=== PATIENT | female | born 1955 | race American Indian/Alaskan Native ===

== ENCOUNTER 2019-01-06 14:57 | Outpatient (CLI) | payer MEDICARE ==
[2019-01-06 16:03] LABS: Hematocrit 37.6 % (30.3-42.9); Hemoglobin 12.8 gm/dl (10.1-14.3); Mean Corpuscular HGB Conc 34 % (30-34); Mean Corpuscular Volume 97 fl (79-97); Platelet Count 211 K/mm3 (140-440); Red Blood Count 3.88 M/mm3 (3.65-5.03); Red Cell Distribution Width 11.8 % (13.2-15.2)
[2019-01-06 16:04] LABS: Bilirubin,Urine NEG (Negative); Blood,Urine NEG (Negative); Color,Urine Yellow (Yellow); Protein,Urine <15 mg/dL mg/dL (Negative); Urobilinogen,Urine < 2.0 mg/dL (<2.0)
[2019-01-06 16:07] LABS: Alanine Aminotransferase 12 units/L (7-56); Albumin 4.2 g/dL (3.9-5); BUN/Creatinine Ratio 14; Blood Urea Nitrogen 7 mg/dL (7-17); Calcium 8.9 mg/dL (8.4-10.2); Hemolysis Index 1
== END 2019-01-06 14:58 | disposition home or self-care (01) ==
LOC: LAB 14:57
PROVIDERS: ATTEND Internal Medicine
DX: B18.2 Chronic viral hepatitis C (principal); D72.829 Elevated white blood cell count, unspecified; N39.0 Urinary tract infection, site not specified; I10 Essential (primary) hypertension
CPT/HCPCS: 36415; 80053; 81001; 85027

== ENCOUNTER 2019-01-20 08:07 | Emergency (ER) | payer MEDICARE ==
[2019-01-20 08:36] LABS: Hematocrit 36.3 % (30.3-42.9); Hemoglobin 12.4 gm/dl (10.1-14.3); Mean Corpuscular HGB Conc 34 % (30-34); Mean Corpuscular Volume 97 fl (79-97); Platelet Count 213 K/mm3 (140-440); Red Blood Count 3.73 M/mm3 (3.65-5.03)
[2019-01-20 08:46] LABS: BUN/Creatinine Ratio 14; Blood Urea Nitrogen 10 mg/dL (7-17); Calcium 8.9 mg/dL (8.4-10.2); Hemolysis Index 116
[2019-01-20] MEDS ORDERED: ZOFRAN IV ONE (08:47)
[2019-01-20] MEDS ORDERED: NACL 0.9% 1000 ML 1,000 ML IV ONE (08:47)
[2019-01-20] MEDS ORDERED: CARAFATE PO ONE (08:47)
[2019-01-20] MEDS ORDERED: PEPCID IV ONE (08:47)
--- NOTE | 2019-01-20 08:48 | Emergency Department Report ---
ED General Adult HPI - General Chief complaint: Abdominal Pain Stated complaint: ABD PAIN Time Seen by Provider: 01/20/19 08:26 Source: patient, RN notes reviewed Mode of arrival: Ambulatory Limitations: No Limitations - History of Present Illness Initial comments: Primary care Dr.: Dr. Tom Past medical history: Hypertension, diabetes, rheumatoid arthritis, currently on humira and plaquenil This is a pleasant 63-year-old female. This patient is not known to this provider previously. The patient states that she had a colonoscopy 6 months ago , "by the group across the street", and believes that it showed hemorrhoids. She presents to the ER today with 1 month of intermittent diffuse abdominal pain and cramping, nausea, no active vomiting, brown stool mixed with red blood. Symptoms present for a few weeks, do not radiate anywhere, and reportedly did not have exacerbating or early infectious. Positive dry cough. No documented fevers. Patient was taking NSAIDs up until 2 weeks ago. She states she is not taking any anticoagulants or NSAIDs at this time. -: Gradual Location: abdomen Consistency: intermittent Improves with: none Worsens with: none - Related Data Home Medications Medication Instructions Recorded Confirmed Last Taken Hydroxychloroquine [Plaquenil] 200 mg PO BID 10/06/13 01/20/19 01/19/19 Lisinopril [Zestril] 5 mg PO QDAY 10/06/13 01/20/19 01/19/19 5 Prednisone [Sherman] 5 mg PO QDAY 10/06/13 01/20/19 01/19/19 5 glipiZIDE [Glipizide Xl] 10 mg PO AMHY 10/06/13 01/20/19 01/19/19 10 Adalimumab [Humira] 20 mg SQ Q14D 01/20/19 01/20/19 01/03/19 20 Previous Rx's Medication Instructions Recorded Last Taken Type Acetaminophen [Non-Aspirin Extra 500 mg PO Q6HR PRN #30 tablet 01/20/19 Unknown Rx Strength] Dicyclomine [Bentyl] 10 mg PO QID PRN #20 capsule 01/20/19 Unknown Rx Hydrocortisone [Anusol-Hc 2.5% TOP 30 gm RC QHS #10 cream..g. 01/20/19 Unknown Rx CREAM] Ondansetron [Zofran Odt] 4 mg PO Q8HR PRN #20 tab.rapdis 01/20/19 Unknown Rx Allergies Allergy/AdvReac Type Severity Reaction Status Date / Time codeine Allergy Itching Verified 10/06/13 02:08 ED Review of Systems ROS: Stated complaint: ABD PAIN Other details as noted in HPI Constitutional: denies: fever Eyes: denies: eye discharge ENT: denies: epistaxis Respiratory: cough Cardiovascular: denies: chest pain, palpitations Gastrointestinal: abdominal pain, nausea, hematochezia Genitourinary: denies: dysuria Musculoskeletal: arthralgia (chronic) Skin: denies: lesions Neurological: denies: weakness Hematological/Lymphatic: denies: easy bleeding ED Past Medical Hx - Past Medical History Hx Hypertension: Yes Hx Diabetes: Yes Hx Arthritis: Yes (rheumatoid) - Social History Smoking Status: Current Every Day Smoker Substance Use Type: None - Medications Home Medications: Home Medications Medication Instructions Recorded Confirmed Last Taken Type Hydroxychloroquine [Plaquenil] 200 mg PO BID 10/06/13 01/20/19 01/19/19 History Lisinopril [Zestril] 5 mg PO QDAY 10/06/13 01/20/19 01/19/19 History 5 Prednisone [Sherman] 5 mg PO QDAY 10/06/13 01/20/19 01/19/19 History 5 glipiZIDE [Glipizide Xl] 10 mg PO AMHY 10/06/13 01/20/19 01/19/19 History 10 Acetaminophen [Non-Aspirin Extra 500 mg PO Q6HR PRN #30 tablet 01/20/19 Unknown Rx Strength] Adalimumab [Humira] 20 mg SQ Q14D 01/20/19 01/20/19 01/03/19 History 20 Dicyclomine [Bentyl] 10 mg PO QID PRN #20 capsule 01/20/19 Unknown Rx Hydrocortisone [Anusol-Hc 2.5% TOP 30 gm RC QHS #10 cream..g. 01/20/19 Unknown Rx CREAM] Ondansetron [Zofran Odt] 4 mg PO Q8HR PRN #20 tab.rapdis 01/20/19 Unknown Rx ED Physical Exam - General Limitations: No Limitations General appearance: alert, in no apparent distress - Head Head exam: Present: atraumatic, normocephalic - Eye Eye exam: Present: normal appearance, EOMI. Absent: nystagmus - ENT ENT exam: Present: normal exam, normal orophraynx, mucous membranes moist, normal external ear exam - Neck Neck exam: Present: normal inspection, full ROM. Absent: tenderness, meningismus - Respiratory Respiratory exam: Present: normal lung sounds bilaterally. Absent: respiratory distress - Cardiovascular Cardiovascular Exam: Present: regular rate, normal rhythm, normal heart sounds. Absent: bradycardia, tachycardia, irregular rhythm, systolic murmur, diastolic murmur, rubs, gallop - GI/Abdominal GI/Abdominal exam: Present: soft. Absent: distended, tenderness, guarding, rebound, rigid, pulsatile mass - Rectal Rectal exam: Present: normal inspection, normal rectal tone, heme (+) stool, hemorrhoids (external hemorrhoid. Brown stool, guaiac positive.), other (chaperoned by nurse Anisha Hu) - Extremities Exam Extremities exam: Present: normal inspection, full ROM, other (2+ pulses noted in the bilateral upper, lower extremities. There is no long bony tenderness. The pelvis is stable. Muscular compartments are soft.). Absent: tenderness, pedal edema, joint swelling, calf tenderness - Back Exam Back exam: Present: normal inspection, full ROM. Absent: tenderness, CVA tenderness (R), CVA tenderness (L), paraspinal tenderness, vertebral tenderness - Neurological Exam Neurological exam: Present: alert, other (there is no facial droop. The tongue is midline. The extraocular movements are intact bilaterally. 5/ 5 strength bilateral upper, lower extremities. Sensation intact to light touch bilateral upper, lower extremities bilaterally. Sensation is intact to light touch in the bilateral V1, V2, V3 distribution.). Absent: motor sensory deficit - Psychiatric Psychiatric exam: Present: normal affect, normal mood - Skin Skin exam: Present: warm, dry, intact, normal color. Absent: rash ED Course Vital Signs 01/20/19 01/20/19 08:12 10:16 Temperature 98.4 F Pulse Rate 94 H 80 Respiratory 16 18 Rate Blood Pressure 158/93 150/45 [Left] O2 Sat by Pulse 95 97 Oximetry - Reevaluation(s) Reevaluation #1: 01/20/19 09:25 Differential diagnosis, including but not limited to: Internal hemorrhoids, external hemorrhoids, diverticulosis, angiodysplasia, malignancy, colitis, diverticulitis Assessment and plan: 63-year-old female with 1 month abdominal cramping and intermittent bloody stool. The patient is afebrile with reassuring vital signs. Hemoglobin, hematocrit acceptable and within normal limits. There is no abdominal tenderness at this time. Vital signs are within normal limits. Patient has brown stool that is guaiac positive, an external hemorrhoid. We have contacted gastroenterology acid conditioning worker, attempting to obtain the colonoscopy report, and arrange close outpatient follow-up. Given duration of symptoms, physical exam findings, laboratory studies, and our local GI group's ability to accommodate close outpatient follow-up, the patient at this point time does not meet criteria for hospitalization, assuming CT scan of the abdomen and pelvis negative for significant disease. We will treat the patient's symptoms. We bartolome l reassess after data points have resulted. Reevaluation #2: 01/20/19 09:29 d/w GI PRODUCT SUPPORT REPRESENTATIVE Tata Sharif; as per the records, patient had a colonoscopy in 2008, as per the patient's verbal report, which only showed hemorrhoids. She was also seen for constipation and/or anal fissure in 2010 She is in agreement with close outpatient follow-up, assuming CT scan shows no acute findings. 01/20/19 09:42 Reevaluation #3: 01/20/19 11:02 Vital signs have remained stable. CT scan of the abdomen and pelvis negative for acute disease. No active vomiting. Patient will be started on anusol, as needed pain medication, and she can follow up with outpatient gastroenterology. ED Medical Decision Making - Lab Data Result diagrams: 01/20/19 08:22 01/20/19 08:22 Vital Signs 01/20/19 08:12 Temperature 98.4 F Pulse Rate 94 H Respiratory 16 Rate Blood Pressure 158/93 [Left] O2 Sat by Pulse 95 Oximetry Lab Results 01/20/19 01/20/19 01/20/19 Range/Units 08:22 08:22 08:22 WBC 11.0 (4.5-11.0) K/mm3 RBC 3.73 (3.65-5.03) M/mm3 Hgb 12.4 (10.1-14.3) gm/dl Hct 36.3 (30.3-42.9) % MCV 97 (79-97) fl MCH 33 H (28-32) pg MCHC 34 (30-34) % RDW 12.0 L (13.2-15.2) % Plt Count 213 (140-440) K/mm3 Eos % (Auto) [employer] Developer Sodium 137 (137-145) mmol/L Potassium 4.0 (3.6-5.0) mmol/L Chloride 102.2 (98-107) mmol/L Carbon Dioxide 22 (22-30) mmol/L Anion Gap 17 mmol/L BUN 10 (7-17) mg/dL Creatinine 0.7 (0.7-1.2) mg/dL Estimated GFR > 60 ml/min BUN/Creatinine Ratio 14 % Glucose 157 H (65-100) mg/dL Calcium 8.9 (8.4-10.2) mg/dL Magnesium (1.7-2.3) mg/dL Total Bilirubin (0.1-1.2) mg/dL Direct Bilirubin (0-0.2) mg/dL Indirect Bilirubin mg/dL AST (5-40) units/L ALT (7-56) units/L Alkaline Phosphatase (35-129) units/L Total Creatine Kinase (30-135) units/L Total Protein (6.3-8.2) g/dL Albumin (3.9-5) g/dL Albumin/Globulin Ratio % Lipase (13-60) units/L Blood Type O POSITIVE 01/20/19 Range/Units 08:22 WBC (4.5-11.0) K/mm3 RBC (3.65-5.03) M/mm3 Hgb (10.1-14.3) gm/dl Hct (30.3-42.9) % MCV (79-97) fl MCH (28-32) pg MCHC (30-34) % RDW (13.2-15.2) % Plt Count (140-440) K/mm3 Eos % (Auto) Sodium (137-145) mmol/L Potassium (3.6-5.0) mmol/L Chloride (98-107) mmol/L Carbon Dioxide (22-30) mmol/L Anion Gap mmol/L BUN (7-17) mg/dL Creatinine (0.7-1.2) mg/dL Estimated GFR ml/min BUN/Creatinine Ratio % Glucose (65-100) mg/dL Calcium (8.4-10.2) mg/dL Magnesium 1.70 (1.7-2.3) mg/dL Total Bilirubin 0.60 (0.1-1.2) mg/dL Direct Bilirubin < 0.2 (0-0.2) mg/dL Indirect Bilirubin 0.4 mg/dL AST 31 (5-40) units/L ALT 14 (7-56) units/L Alkaline Phosphatase 65 (35-129) units/L Total Creatine Kinase 72 (30-135) units/L Total Protein 7.4 (6.3-8.2) g/dL Albumin 3.9 (3.9-5) g/dL Albumin/Globulin Ratio 1.1 % Lipase 31 (13-60) units/L Blood Type - EKG Data -: EKG Interpreted by Me EKG shows normal: sinus rhythm Rate: normal - EKG Data 01/20/19 09:26 This is a normal sinus rhythm, 81 bpm, normal axis, high left ventricular voltage/left ventricular hypertrophy, poor PROGRESSION, the EKG is abnormal, th ere is no endorsement of chest pain, the EKG is not consistent with ST elevation myocardial infarction. - Radiology Data Radiology results: pending, image reviewed interpreted by me: X-ray of the chest is negative for acute disease Interstitial findings are suggested Referring Physician: ANN MARIE ALCALA Patient Name: KASSANDRA CHAVES Date of : 1955 Sex: Female Report Date: 2019-01-20 Report Status: Finalized Findings [facility] [address] [place] [address] Cat Scan Report Signed Patient: KASSANDRA CHAVES MR#: [id number] : 1955 Acct:[id number] Age/Sex: 63 / F ADM Date: 01/20/19 Loc: ED Attending Dr: Ordering Physician: ANN MARIE ALCALA MD Date of Service: 01/20/19 Procedure(s): CT abdomen pelvis w con Accession Number(s): [id number] cc: ANN MARIE ALCALA MD CT ABDOMEN AND PELVIS WITH CONTRAST HISTORY: Intermittent abdominal pain with nausea and vomiting for one month, GI bleeding COMPARISON: None. TECHNIQUE: Axial CT images were obtained through the abdomen and pelvis after 1 00 cc of Omnipaque 300 intravenously. Sagittal and coronal reformatted images. All CT scans at this location are performed using CT dose reduction for ALARA by means of automated exposure control. FINDINGS: CT ABDOMEN: Lung Bases: Clear. Mild chronic interstitial changes are noted at the right lung base. Normal heart size. Liver: No significant abnormality. Biliary: No significant abnormality. Spleen: No significant abnormality. Unenlarged. Pancreas: No significant abnormality. Adrenals: No significant abnormality. Kidneys: No significant abnormality. Lymphatics: No lymphadenopathy. Vasculature: Mild scattered calcific plaques are noted in the abdominal aorta and common iliac arteries. No aneurysm, dissection or high-grade stenosis. Bowel/Peritoneum: No significant abnormality. No free air. No free fluid. No site of GI bleeding is identified on single contrast CT. The appendix is normal. CT PELVIS: : The bladder and distal ureters are within normal limits. The uterus is mildly enlarged with multiple fibroids demonstrating calcific degeneration. No adnexal cyst or mass. Osseous Structures: No significant abnormality. Additional Findings: Small umbilical hernia containing fat. IMPRESSION: No acute process is identified in the abdomen or pelvis. Uterine fibroid disease. Small umbilical hernia containing fat. Signer Name: Jason Abbott Jr, MD Signed: 01/20/2019 10:31 AM Workstation Name: [id number] Transcribed By: TTR Dictated By: JASON ABBOTT JR, MD Electronically Authenticated By: JASON ABBOTT JR, MD Signed Date/Time: 01/20/19 1031 Critical care attestation.: If time is entered above; I have spent that time in minutes in the direct care of this critically ill patient, excluding procedure time. ED Disposition Clinical Impression: History of GI bleed Abdominal pain Qualifiers: Abdominal location: generalized Qualified Code(s): R10.84 - Generalized abdominal pain Disposition: DC-01 TO HOME OR SELFCARE Is pt being admited?: No Does the pt Need Aspirin: No Condition: Stable Instructions: Sitz Bath (GEN) Additional Instructions: Avoid consumption of Motrin, ibuprofen, Naprosyn, Aleve. Avoid consumption of heavy, spicy foods. Patient may take the prescribed pain medication, nausea medication as needed/directed. Do not take metformin medication for the next 2 days, if patient takes this medication. Patient may use Anusol medication as directed, and use sitz baths as often as as needed. Recommend outpatient follow-up with a hood maker within the next 2-3 weeks. Not following up as recommended may result an undiagnosed cancer, tumor, malignancy. [facility] is a local gastroenterology practice, who has evaluated the patient in the past, in 2008, and 2010, as per the records. Recommend patient follow-up as soon as possible to arrange outpatient follow-up, or follow-up with her previously established hood maker. Patient may contact their service hotline to obtain at that outpatient appointment the following phone number Return to the emergency room right away with new, worsening or different symptoms, or symptoms not present on initial emergency room evaluation. CT scan of the abdomen and pelvis showed no acute or emergent findings however, n onemergent incidental findings were noted, which should be followed up by a primary care doctor within the next 6-8 weeks. Have a primary care doctor contact the medical records department to obtain laboratory results and CT scan results. Referrals: PRIMARY MD LAITH [Primary Care Provider] - 3-5 Days [facility] [Provider Group] - 3-5 Days
[2019-01-20 09:13] LABS: Alanine Aminotransferase 14 units/L (7-56); Albumin 3.9 g/dL (3.9-5)
[2019-01-20 09:14] LABS: Bilirubin,Direct < 0.2 mg/dL (0-0.2)
[2019-01-20] MEDS ORDERED: BENTYL PO ONE (09:30)
[2019-01-20 09:54] LABS: Bacteria,Urine 1+ /HPF (Negative); Bilirubin,Urine NEG (Negative); Blood,Urine NEG (Negative); Color,Urine Yellow (Yellow); Protein,Urine <15 mg/dL mg/dL (Negative); Urobilinogen,Urine < 2.0 mg/dL (<2.0)
[2019-01-20 10:04] LABS: Large Platelets Rare; Platelet Estimate Consistent w Auto; RBC Morphology Normal; Total Cells Counted 100
--- NOTE | 2019-01-20 10:35 | Cat Scan Report ---
CT ABDOMEN AND PELVIS WITH CONTRAST HISTORY: Intermittent abdominal pain with nausea and vomiting for one month, GI bleeding COMPARISON: None. TECHNIQUE: Axial CT images were obtained through the abdomen and pelvis after 100 cc of Omnipaque 300 intravenously. Sagittal and coronal reformatted images. All CT scans at this location are performed using CT dose reduction for ALARA by means of automated exposure control. FINDINGS: CT ABDOMEN: Lung Bases: Clear. Mild chronic interstitial changes are noted at the right lung base. Normal heart s ize. Liver: No significant abnormality. Biliary: No significant abnormality. Spleen: No significant abnormality. Unenlarged. Pancreas: No significant abnormality. Adrenals: No significant abnormality. Kidneys: No significant abnormality. Lymphatics: No lymphadenopathy. Vasculature: Mild scattered calcific plaques are noted in the abdominal aorta and common iliac arteri es. No aneurysm, dissection or high-grade stenosis. Bowel/Peritoneum: No significant abnormality. No free air. No free fluid. No site of GI bleeding is i dentified on single contrast CT. The appendix is normal. CT PELVIS: : The bladder and distal ureters are within normal limits. The uterus is mildly enlarged with multi ple fibroids demonstrating calcific degeneration. No adnexal cyst or mass. Osseous Structures: No significant abnormality. Additional Findings: Small umbilical hernia containing fat. IMPRESSION: No acute process is identified in the abdomen or pelvis. Uterine fibroid disease. Small umbilical hernia containing fat. Signer Name: Jason Abbott Jr, MD Signed: 01/20/2019 10:31 AM Workstation Name: [id number]
--- NOTE | 2019-01-20 11:19 | XRay Report ---
CHEST 2 VIEWS INDICATION: Cough for several days, nausea and vomiting. COMPARISON: FINDINGS: Support devices: None. Heart: Within normal limits. Lungs/pleura: The lungs are hyperinflated with prominent interstitial markings. No evidence for infi ltrate, pneumothorax or mass. Additional findings: None. IMPRESSION: Emphysematous changes. Acute cardiopulmonary process. Signer Name: Jason Abbott Jr, MD Signed: 01/20/2019 11:14 AM Workstation Name: [id number]
[2019-01-20 12:10] VITALS: BP 152/72
== END 2019-01-20 12:10 | disposition home or self-care (01) ==
LOC: ED 08:07
DX: R10.84 Generalized abdominal pain (principal); R11.2 Nausea with vomiting, unspecified; I10 Essential (primary) hypertension; E11.9 Type 2 diabetes mellitus without complications; M19.90 Unspecified osteoarthritis, unspecified site; F17.200 Nicotine dependence, unspecified, uncomplicated; Z79.899 Other long term (current) drug therapy; Z88.6 Allergy status to analgesic agent
CPT/HCPCS: 36415; 71046; 74177; 80048; 80076; 81001; 82271; 82550; 83690; 83735; 85007; 85025; 86850; 86900; 86901; 93005; 93010; 96361; 96374; 96375; 99285; J2405; J7030; Q9967

== ENCOUNTER 2019-02-23 11:21 | Outpatient (CLI) | payer MEDICARE ==
[2019-02-23 12:57] LABS: Chol/HDL Ratio 2.51 %
[2019-03-01 05:53] LABS: Vitamin D, 25-OH, D2 <4 ng/mL
== END 2019-02-23 11:22 | disposition home or self-care (01) ==
LOC: LAB 11:21
PROVIDERS: ATTEND Internal Medicine
DX: E11.9 Type 2 diabetes mellitus without complications (principal); E78.5 Hyperlipidemia, unspecified; B18.2 Chronic viral hepatitis C; I10 Essential (primary) hypertension
CPT/HCPCS: 36415; 80061; 82306; 82607; 83036; 84443; 87517

== ENCOUNTER 2019-03-04 20:02 | Inpatient (IN) | payer MEDICARE ==
--- NOTE | 2019-03-04 20:29 | Event Note ---
ED Screening Note ED Screening Note: generalized body aches N/V three times today no diarrhea subjective fever +urinary frequency PMHx RA allergy to codeine This initial assessment/diagnostic orders/clinical plan/treatment(s) is/are subject to change based on patients health status, clinical progression and re- assessment by fellow clinical providers in the ED. Further treatment and workup at subsequent clinical providers discretion. Patient/guardian urged not to elope from the ED as their condition may be serious if not clinically assessed and managed. Initial orders include: labs, UA
[2019-03-04 20:57] LABS: Basophils # (Auto) 0.1 K/mm3 (0.0-0.1); Basophils % (Auto) 0.6 % (0.0-1.8); Eosinophils # (Auto) 0.7 K/mm3 (0.0-0.4); Hematocrit 35.6 % (30.3-42.9); Lymphocytes # (Auto) 2.2 K/mm3 (1.2-5.4); Mean Corpuscular HGB Conc 34 % (30-34); Mean Corpuscular Volume 95 fl (79-97); Monocytes # (Auto) 1.4 K/mm3 (0.0-0.8); Monocytes % (Auto) 7.5 % (0.0-7.3); Platelet Count 226 K/mm3 (140-440); Red Blood Count 3.76 M/mm3 (3.65-5.03); Red Cell Distribution Width 12.3 % (13.2-15.2)
[2019-03-04 21:19] LABS: Alanine Aminotransferase 13 units/L (7-56); Albumin 4.2 g/dL (3.9-5); BUN/Creatinine Ratio 16; Blood Urea Nitrogen 8 mg/dL (7-17); Hemolysis Index 8
[2019-03-04 21:41] LABS: Bilirubin,Urine NEG (Negative); Blood,Urine NEG (Negative); Color,Urine Yellow (Yellow); Protein,Urine <15 mg/dL mg/dL (Negative); Urobilinogen,Urine < 2.0 mg/dL (<2.0); WBC,Urine < 1.0 /HPF (0.0-6.0)
--- NOTE | 2019-03-04 21:51 | Emergency Department Report ---
ED General Adult HPI - General Chief complaint: Nausea/Vomiting/Diarrhea Stated complaint: N/V Time Seen by Provider: 03/04/19 21:33 Source: patient, family Mode of arrival: Ambulatory Limitations: No Limitations - History of Present Illness Initial comments: Patient is a 63-year-old female that presents emergency room with complaints of nausea vomiting, body aches, fever, dysuria. Patient states her symptoms started 2 days ago. Patient states she hasn't had any oral intake for the last 30 hours. Patient states she is also having left shoulder pain. 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 Patient denies trauma to her shoulder. Patient denies fall. Patient states her shoulder pain is a 10 out of 10. Patient states she has rheumatoid arthritis and has not been able to rheumatoid arthritis pain due to her nausea and vomiting. Patient states her symptoms are better with rest and worse with eating and exertion. Patient states her symptoms are worse with vomiting. Patient states she has a past medical history of RA, diabetes, hypertension. Patient denies blood in her vomitus. She is also complaining of abdominal pain that is intermittent. Patient states her abdominal pain is worse with vomiting and better with rest. -: Sudden Quality: burning, aching Consistency: constant, intermittent Improves with: rest, other Worsens with: other Associated Symptoms: fever/chills, nausea/vomiting. denies: confusion, chest pain, cough, diaphoresis, headaches, loss of appetite, rash, seizure, shortness of breath, syncope, weakness Treatments Prior to Arrival: none - Related Data Home Medications Medication Instructions Recorded Confirmed Last Taken Hydroxychloroquine [Plaquenil] 200 mg PO BID 10/06/13 01/20/19 01/19/19 Lisinopril [Zestril] 5 mg PO QDAY 10/06/13 01/20/19 01/19/19 5 Prednisone [Sherman] 5 mg PO QDAY 10/06/13 01/20/19 01/19/19 5 glipiZIDE [Glipizide Xl] 10 mg PO AMHY 10/06/13 01/20/19 01/19/19 10 Adalimumab [Humira] 20 mg SQ Q14D 01/20/19 01/20/19 01/03/19 20 Previous Rx's Medication Instructions Recorded Last Taken Type Acetaminophen [Non-Aspirin Extra 500 mg PO Q6HR PRN #30 tablet 01/20/19 Unknown Rx Strength] Dicyclomine [Bentyl] 10 mg PO QID PRN #20 capsule 01/20/19 Unknown Rx Hydrocortisone [Anusol-Hc 2.5% TOP 30 gm RC QHS #10 cream..g. 01/20/19 Unknown Rx CREAM] Ondansetron [Zofran Odt] 4 mg PO Q8HR PRN #20 tab.rapdis 01/20/19 Unknown Rx Allergies Allergy/AdvReac Type Severity Reaction Status Date / Time codeine Allergy Itching Verified 10/06/13 02:08 ED Review of Systems ROS: Stated complaint: N/V Other details as noted in HPI Constitutional: denies: chills, fever Eyes: denies: eye pain, eye discharge, vision change ENT: denies: ear pain, throat pain Respiratory: denies: cough, shortness of breath, wheezing Cardiovascular: denies: chest pain, palpitations Endocrine: no symptoms reported Gastrointestinal: abdominal pain, nausea, vomiting. denies: diarrhea, constipation, hematemesis Genitourinary: dysuria, frequency. denies: urgency, discharge Musculoskeletal: denies: back pain, joint swelling, arthralgia Skin: denies: rash, lesions Neurological: denies: headache, weakness, paresthesias Psychiatric: denies: anxiety, depression Hematological/Lymphatic: denies: easy bleeding, easy bruising ED Past Medical Hx - Past Medical History Previous Medical History?: Yes Hx Hypertension: Yes Hx Diabetes: Yes Hx Arthritis: Yes (rheumatoid) - Surgical History Past Surgical History?: No - Family History Family history: no significant - Social History Smoking Status: Current Every Day Smoker Substance Use Type: None - Medications Home Medications: Home Medications Medication Instructions Recorded Confirmed Last Taken Type Hydroxychloroquine [Plaquenil] 200 mg PO BID 10/06/13 01/20/19 01/19/19 History Lisinopril [Zestril] 5 mg PO QDAY 10/06/13 01/20/19 01/19/19 History 5 Prednisone [Sherman] 5 mg PO QDAY 10/06/13 01/20/19 01/19/19 History 5 glipiZIDE [Glipizide Xl] 10 mg PO AMHY 10/06/13 01/20/19 01/19/19 History 10 Acetaminophen [Non-Aspirin Extra 500 mg PO Q6HR PRN #30 tablet 01/20/19 Unknown Rx Strength] Adalimumab [Humira] 20 mg SQ Q14D 01/20/19 01/20/19 01/03/19 History 20 Dicyclomine [Bentyl] 10 mg PO QID PRN #20 capsule 01/20/19 Unknown Rx Hydrocortisone [Anusol-Hc 2.5% TOP 30 gm RC QHS #10 cream..g. 01/20/19 Unknown Rx CREAM] Ondansetron [Zofran Odt] 4 mg PO Q8HR PRN #20 tab.rapdis 01/20/19 Unknown Rx ED Physical Exam - General Limitations: No Limitations General appearance: alert, in no apparent distress - Head Head exam: Present: atraumatic, normocephalic - Eye Eye exam: Present: normal appearance - ENT ENT exam: Present: mucous membranes moist - Neck Neck exam: Present: normal inspection - Respiratory Respiratory exam: Present: normal lung sounds bilaterally. Absent: respiratory distress, wheezes, rales - Cardiovascular Cardiovascular Exam: Present: regular rate, normal rhythm. Absent: systolic murmur, diastolic murmur, rubs, gallop - GI/Abdominal GI/Abdominal exam: Present: soft, tenderness (epigastric and left lower quadrant tenderness), normal bowel sounds - Extremities Exam Extremities exam: Present: normal inspection - Back Exam Back exam: Present: normal inspection - Neurological Exam Neurological exam: Present: alert, oriented X3 - Psychiatric Psychiatric exam: Present: normal affect, normal mood - Skin Skin exam: Present: warm, dry, intact, normal color. Absent: rash ED Course Vital Signs 03/04/19 03/05/19 20:15 01:13 Temperature 100.0 F H Pulse Rate 115 H Respiratory 16 18 Rate Blood Pressure 152/73 O2 Sat by Pulse 92 Oximetry - Reevaluation(s) Reevaluation #1: Discussed all results with patient. I discussed plan of care with patient. Patient agrees with plan of care. 03/05/19 02:30 - Consultations Consultation #1: Hospitalist consult for admission. Hospitalist to admit patient. 03/05/19 02:30 ED Medical Decision Making - Lab Data Result diagrams: 03/04/19 20:45 03/04/19 20:45 - Radiology Data Radiology results: report reviewed - Medical Decision Making Patient is a 63-year-old female that presents emergency room with complaints of abdominal pain, nausea and vomiting and shoulder pain and fever and bodyaches. Patient shoulder pain consistent with a shoulder strain due to lifting at work. Patient denies any trauma or falls. Patient's abdominal pain appears to be secondary gastroenteritis versus diverticulitis. Patient found to have an elevated white count and dehydration. Patient given fluids and pain medications in the ER. Patient also given Zosyn. Patient admitted to the hospitalist service. Patient's nausea and vomiting found to be intractable and patient's abdominal pain intractable. - Differential Diagnosis abdominal pain. Gastroenteritis. Diverticulitis. Gastritis. Chronic pain Critical Care Time: Yes Critical care attestation.: If time is entered above; I have spent that time in minutes in the direct care of this critically ill patient, excluding procedure time. Critical Care Time: 35 minutes ED Disposition Clinical Impression: Diverticulitis, Gastroenteritis, Intractable nausea and vomiting, Body aches Abdominal pain Qualifiers: Abdominal location: left lower quadrant Qualified Code(s): R10.32 - Left lower quadrant pain Fever Qualifiers: Fever type: unspecified Qualified Code(s): R50.9 - Fever, unspecified Sprain of shoulder, left Qualifiers: Encounter type: initial encounter Shoulder sprain type: unspecified sprain [place] lified Code(s): S43.402A - Unspecified sprain of left shoulder joint, initial encounter Disposition: 09 OP ADMIT IP TO THIS HOSP Is pt being admited?: Yes Does the pt Need Aspirin: No Condition: Critical Time of Disposition: 02:29
[2019-03-04] MEDS ORDERED: ONDANSETRON 4 MG/2 ML INJ IV ONE (21:56)
[2019-03-04] MEDS ORDERED: SODIUM CHLORIDE 0.9% 1000 ML 1,000 ML IV ONE (21:56)
[2019-03-04 22:09] LABS: Erythrocyte Sedimentation Rate 21 mm/Hr (0-20)
[2019-03-05] MEDS ORDERED: HYDROmorphone 1 MG/1 ML INJ IV ONE ×2 (01:10→02:30)
[2019-03-05] MEDS ORDERED: HYDROmorphone 2 MG/1 ML INJ ONE (01:12)
[2019-03-05] MEDS ORDERED: SODIUM CHLORIDE 0.9% 1000 ML 1,000 ML IV ONE (02:31)
[2019-03-05] MEDS ORDERED: PIPERACIL/TAZOBACTA 4.5/NS 100 4.5 GM/100 ML VIAL IV ONE (02:41)
--- NOTE | 2019-03-05 02:54 | History and Physical Report ---
History of Present Illness Date of examination: 03/05/19 History of present illness: 63-year-old woman with a history of hypertension, diabetes, rheumatoid arthritis comes emergency room with complaints of nausea vomiting all week. She has chronic loose stools which has not changed, complaining of generalized body ache because she is unable to keep down her rheumatoid medicine and also complain of subjective fever eview Of Systems: Constitutional: no weight loss, fever, chills Ears, eyes, nose, mouth and throat: no nasal congestion, no nasal discharge, no sinus pressure, blurry vision, diplopia Neck: No neck pain or rigidity. Cardiovascular: No palpitations, chest pain Respiratory: No shortness of breath, cough Gastrointestinal: No hematochezia, abdominal pain Genitourinary : no dysuria, frequency , hematuria Musculoskeletal: no muscle ache , joint pain Integumentary: no rash, no pruritis Neurological: no parathesias, focal weakness Endocrine: no cold or heat intolerance, no polyuria or polydipsia Hematologic/Lymphatic: no easy bruising, no easy bleeding, no gland swelling Allergic/Immunologic: no urticaria, no angioedema. PAST MEDICAL HISTORY:hypertension, diabetes, rheumatoid arthritis PAST SURGICAL HISTORY:None FAMILY HISTORY:hypertension, diabetes SOCIAL HISTORY: Smokes half a pack a day, no drugs, alcohol Medications and Allergies Allergies Allergy/AdvReac Type Severity Reaction Status Date / Time codeine Allergy Itching Verified 10/06/13 02:08 Home Medications Medication Instructions Recorded Confirmed Last Taken Type Hydroxychloroquine [Plaquenil] 200 mg PO BID 10/06/13 03/05/19 01/19/19 History Lisinopril [Zestril TAB] 5 mg PO QDAY 10/06/13 03/05/19 01/19/19 History 5 Prednisone [predniSONE (Sherman) ER 5 mg PO QDAY 10/06/13 03/05/19 01/19/19 History TAB] 5 glipiZIDE [glipiZIDE XL] 10 mg PO AMHY 10/06/13 03/05/19 01/19/19 History 10 Acetaminophen [Non-Aspirin Extra 500 mg PO Q6HR PRN #30 tablet 01/20/19 03/05/19 Unknown Rx Strength] Adalimumab [Humira] 20 mg SQ Q14D 08/22/19 10/05/19 08/05/19 History 20 Dicyclomine [Bentyl] 10 mg PO QID PRN #20 capsule 01/20/19 03/05/19 Unknown Rx Hydrocortisone [Anusol-Hc 2.5% TOP 30 gm RC QHS #10 cream..g. 01/20/19 03/05/19 Unknown Rx CREAM] Ondansetron [Zofran ODT TAB] 4 mg PO Q8HR PRN #20 tab.rapdis 01/20/19 03/05/19 Unknown Rx Active Meds: Active Medications Sodium Chloride (Nacl 0.9% 1000 Ml) 1,000 mls @ 999 mls/hr IV BOLUS ONE Stop: 03/05/19 03:31 Piperacillin Sod/Tazobactam Sod (Zosyn/Ns 4.5gm/100ml) 4.5 gm in 100 mls @ 200 mls/hr IV ONCE ONE; Protocol Stop: 03/05/19 03:10 Exam - Physical Exam Narrative exam: General Apperance: The patient sitting in bed no acute distress HEENT: Normocephalic, atraumatic. Pupils equally round and reactive to light, extraocular movement intact, and no sclericterus or JVD or thyromegaly or nodule. Neck supple, no carotid bruit, mucous membranes moist, no exudate or erythema Heart: S1-S2, regular is rhythm Lungs: Clear to auscultation bilaterally, breathing comfortable Abdomen: Positive bowel sounds, soft, nontender, nondistended, no organomegaly Extremities: No edema cyanosis clubbing Skin: no rash, nodule, warm and dry Neuro:CN 2 -12 intact, motor/sensory intact, speech is fluent - Constitutional Vitals: Temp Pulse Resp BP Pulse Ox 100.0 F H 115 H 18 152/73 92 03/04/19 20:15 03/04/19 20:15 03/05/19 01:13 03/04/19 20:15 03/04/19 20:15 Results - Labs CBC & Chem 7: 03/06/19 04:36 03/06/19 04:36 Labs: Abnormal lab results 03/04/19 03/04/19 Range/Units 20:45 20:45 WBC 18.7 H (4.5-11.0) K/mm3 RDW 12.3 L (13.2-15.2) % Lymph % (Auto) 12.0 L (13.4-35.0) % [place] % (Auto) 7.5 H (0.0-7.3) % [place] # 1.4 H (0.0-0.8) K/mm3 Eos # 0.7 H (0.0-0.4) K/mm3 Seg Neutrophils % 75.9 H (40.0-70.0) % Seg Neutrophils # 14.2 H (1.8-7.7) K/mm3 Carbon Dioxide 21 L (22-30) mmol/L Creatinine 0.5 L (0.7-1.2) mg/dL Glucose 118 H (65-100) mg/dL - Imaging and Cardiology CT scan - abdomen: report reviewed CT scan - pelvis: report reviewed Assessment and Plan Assessment Acute gastroenteritis hypertension diabetes rheumatoid arthritis Plan Admit to medicine Start fluids IV , Zosyn, follow cultures, check blood cultures Check fingersticks initiate insulin sliding scale DVT prophylaxis on IV morphine
[2019-03-05] MEDS ORDERED: ONDANSETRON 4 MG/2 ML INJ IV PRN (05:30)
[2019-03-05] MEDS ORDERED: ACETAMINOPHEN 325 MG TAB PO PRN (05:30)
[2019-03-05 05:55] LABS: Basophils # (Auto) 0.1 K/mm3 (0.0-0.1); Basophils % (Auto) 0.6 % (0.0-1.8); Eosinophils # (Auto) 0.8 K/mm3 (0.0-0.4); Eosinophils % (Auto) 4.7 % (0.0-4.3); Hematocrit 30.7 % (30.3-42.9); Hemoglobin 10.2 gm/dl (10.1-14.3); Lymphocytes # (Auto) 2.3 K/mm3 (1.2-5.4); Lymphocytes % (Auto) 13.4 % (13.4-35.0); Mean Corpuscular HGB Conc 33 % (30-34); Mean Corpuscular Volume 95 fl (79-97); Monocytes # (Auto) 1.6 K/mm3 (0.0-0.8); Monocytes % (Auto) 9.2 % (0.0-7.3); Platelet Count 184 K/mm3 (140-440); Red Blood Count 3.23 M/mm3 (3.65-5.03)
[2019-03-05] MEDS ORDERED: DEXTROSE 50% IN WATER (25GM) 50 ML SYRINGE IV PRN (06:04)
[2019-03-05 06:07] LABS: BUN/Creatinine Ratio 14; Blood Urea Nitrogen 7 mg/dL (7-17); Calcium 7.8 mg/dL (8.4-10.2); Hemolysis Index 0
[2019-03-05] MEDS: SODIUM CHLORIDE 0.45% 1000 ML 1,000 ML IV SCH ×2 (06:42→17:20)
[2019-03-05] MEDS ORDERED: DICYCLOMINE 10 MG CAP PO PRN (07:00)
[2019-03-05] MEDS ORDERED: ADALIMUMAB 20 MG SUB-Q SCH (07:00)
--- NOTE | 2019-03-05 07:26 | Cat Scan Report ---
Please see separately dictated CT scan abdomen/pelvis with without contrast. Signer Name: Nereyda Adams MD Signed: 03/05/2019 7:22 AM Workstation Name: [id number]
[2019-03-05] MEDS: INSULIN LISPRO 100 UNIT/ML SUB-Q SCH ×4 (08:33→21:47)
[2019-03-05] MEDS ORDERED: PIPERACIL/TAZOBACTA 4.5/NS 100 4.5 GM/100 ML VIAL IV SCH (10:00)
[2019-03-05] MEDS ORDERED: PREDNISONE 5 MG PO SCH (10:00)
[2019-03-05] MEDS: MORPHINE 2 MG/1 ML INJ IV PRN ×2 (10:17→17:17)
[2019-03-05] MEDS: HYDROXYCHLOROQUINE 200 MG TAB PO SCH ×2 (10:18→21:48)
[2019-03-05] MEDS: ENOXAPARIN 40 MG/0.4 ML INJ SUB-Q SCH (10:18)
[2019-03-05] MEDS: predniSONE 5 MG TAB PO SCH (10:19)
[2019-03-05] MEDS: LISINOPRIL 5 MG TAB PO SCH (10:19)
[2019-03-05] MEDS ORDERED: POTASSIUM CHLORIDE 40 MEQ in SODIUM CHLORIDE 0.45% 500 ML IV SCH (10:30)
[2019-03-05] MEDS ORDERED: diphenhydrAMINE 25 MG CAP PO PRN (11:41)
[2019-03-05] MEDS: POTASSIUM CHLORIDE 10 MEQ 10 MEQ/100 ML BAG IV SCH ×2 (13:28→15:19)
[2019-03-05] MEDS ORDERED: HYDROCORTISONE 2.5% RECT CREAM 28.35 GM PR SCH (22:00)
[2019-03-06] MEDS: SODIUM CHLORIDE 0.45% 1000 ML 1,000 ML IV SCH (03:31)
[2019-03-06 05:17] LABS: Basophils # (Auto) 0.2 K/mm3 (0.0-0.1); Basophils % (Auto) 1.3 % (0.0-1.8); Eosinophils # (Auto) 0.7 K/mm3 (0.0-0.4); Eosinophils % (Auto) 5.6 % (0.0-4.3); Hematocrit 29.2 % (30.3-42.9); Hemoglobin 9.9 gm/dl (10.1-14.3); Lymphocytes # (Auto) 2.7 K/mm3 (1.2-5.4); Lymphocytes % (Auto) 22.3 % (13.4-35.0); Mean Corpuscular HGB Conc 34 % (30-34); Mean Corpuscular Volume 96 fl (79-97); Monocytes # (Auto) 1.2 K/mm3 (0.0-0.8); Monocytes % (Auto) 9.9 % (0.0-7.3); Platelet Count 187 K/mm3 (140-440); Red Blood Count 3.04 M/mm3 (3.65-5.03)
[2019-03-06 05:36] LABS: BUN/Creatinine Ratio 16; Blood Urea Nitrogen 8 mg/dL (7-17); Calcium 8.2 mg/dL (8.4-10.2); Hemolysis Index 0
[2019-03-06] MEDS: MORPHINE 2 MG/1 ML INJ IV PRN (07:52)
[2019-03-06] MEDS: INSULIN LISPRO 100 UNIT/ML SUB-Q SCH ×2 (08:34→11:57)
--- NOTE | 2019-03-06 10:15 | Progress Note ---
Assessment and Plan Assessment and plan: 63-year-old woman who presented to the hospital with nausea, vomiting, body aches fever and dysuria x2 days. Patient denied diarrhea Past medical history; rheumatoid arthritis, hypertension, diabetes Labs revealed elevated white count which is trending down, mild anemia, hypokalemia which has now been repleted and normalized. Normal kidney function and mild hypocalcemia, UA negative CT abdomen and pelvis No official report in the system, spoke to the radiologist Nereyda Adams, she states that there is nothing acute on the CT scan, only showing fibroid uterus. Awaiting official reports. Diagnosis Acute gastroenteritis Hypertension Diabetes RA Hypokalemia Mild anemia of chronic disease Constipation Plan She has received IV fluids, pain meds and antiemetics. Diet was advanced. She received insulins, Potassium was repleted Patient complained of constipation and therefore was given laxatives. History Interval history: Review of systems Constitutional: No fevers, CVS: No chest pain, no orthopnea, no pedal edema GI: Complaining of abdominal pain and constipation Respiratory: No shortness of breath, no wheezing, no coughing Hospitalist Physical - Physical exam Narrative exam: General.: Mild distress HEENT: Moist mucous membranes, extraocular muscles intact, no lymphadenopathy Neck: supple Cardiac: S1-S2 heard Lungs: clear to auscultation bilaterally Abdomen: soft , nontender, nondistended, bowel sounds positive Extremities: no edema clubbing or cyanosis Skin: no rash or lesions Neurologic: no gross focal deficits Psych: calm, and cooperative - Constitutional Vitals: Temp Pulse Resp BP Pulse Ox 98.7 F 83 18 133/57 93 03/06/19 05:35 03/06/19 05:35 03/06/19 05:35 03/06/19 05:35 03/06/19 05:35 Results - Labs CBC & Chem 7: 03/06/19 04:36 03/06/19 04:36 Labs: Laboratory Last Values WBC 12.2 K/mm3 (4.5-11.0) H 03/06/19 04:36 RBC 3.04 M/mm3 (3.65-5.03) L 03/06/19 04:36 Hgb 9.9 gm/dl (10.1-14.3) L 03/06/19 04:36 Hct 29.2 % (30.3-42.9) L 03/06/19 04:36 MCV 96 fl (79-97) 03/06/19 04:36 MCH 33 pg (28-32) H 03/06/19 04:36 MCHC 34 % (30-34) 03/06/19 04:36 RDW 12.0 % (13.2-15.2) L 03/06/19 04:36 Plt Count 187 K/mm3 (140-440) 03/06/19 04:36 Lymph % (Auto) 22.3 % (13.4-35.0) 03/06/19 04:36 [place] % (Auto) 9.9 % (0.0-7.3) H 03/06/19 04:36 Eos % (Auto) 5.6 % (0.0-4.3) H 03/06/19 04:36 Baso % (Auto) 1.3 % (0.0-1.8) 03/06/19 04:36 Lymph # 2.7 K/mm3 (1.2-5.4) 03/06/19 04:36 [place] # 1.2 K/mm3 (0.0-0.8) H 03/06/19 04:36 Eos # 0.7 K/mm3 (0.0-0.4) H 03/06/19 04:36 Baso # 0.2 K/mm3 (0.0-0.1) H 03/06/19 04:36 Seg Neutrophils % 60.9 % (40.0-70.0) 03/06/19 04:36 Seg Neutrophils # 7.4 K/mm3 (1.8-7.7) 03/06/19 04:36 ESR 21 mm/Hr (0-20) 03/04/19 20:45 Sodium 142 mmol/L (137-145) 03/06/19 04:36 Potassium 3.6 mmol/L (3.6-5.0) 03/06/19 04:36 Chloride 109.1 mmol/L (98-107) H 03/06/19 04:36 Carbon Dioxide 23 mmol/L (22-30) 03/06/19 04:36 Anion Gap 14 mmol/L 03/06/19 04:36 BUN 8 mg/dL (7-17) 03/06/19 04:36 Creatinine 0.5 mg/dL (0.7-1.2) L 03/06/19 04:36 Estimated GFR > 60 ml/min 03/06/19 04:36 BUN/Creatinine Ratio 16 % 03/06/19 04:36 Glucose 113 mg/dL (65-100) H 03/06/19 04:36 POC Glucose 180 (70-105) H 03/06/19 07:45 Calcium 8.2 mg/dL (8.4-10.2) L 03/06/19 04:36 Phosphorus 3.50 mg/dL (2.5-4.5) 03/06/19 04:36 Magnesium 1.70 mg/dL (1.7-2.3) 03/06/19 04:36 Total Bilirubin 0.60 mg/dL (0.1-1.2) 03/04/19 20:45 AST 21 units/L (5-40) 03/04/19 20:45 ALT 13 units/L (7-56) 03/04/19 20:45 Alkaline Phosphatase 78 units/L (35-129) 03/04/19 20:45 C-Reactive Protein 0.20 mg/dL (0.00-1.30) 03/04/19 20:45 Total Protein 8.0 g/dL (6.3-8.2) 03/04/19 20:45 Albumin 4.2 g/dL (3.9-5) 03/04/19 20:45 Albumin/Globulin Ratio 1.1 % 03/04/19 20:45 Urine Color Yellow (Yellow) 03/04/19 21:27 Urine Turbidity Clear (Clear) 03/04/19 21:27 Urine pH 5.0 (5.0-7.0) 03/04/19 21:27 Ur Specific [place] 1.010 (1.003-1.030) 03/04/19 21:27 Urine Protein <15 mg/dl mg/dL (Negative) 03/04/19 21:27 Urine Glucose (UA) Neg mg/dL (Negative) 03/04/19 21:27 Urine Ketones Neg mg/dL (Negative) 03/04/19 21:27 Urine Blood Neg (Negative) 03/04/19 21:27 Urine Nitrite Neg (Negative) 03/04/19 21:27 Urine Bilirubin Neg (Negative) 03/04/19 21:27 Urine Urobilinogen < 2.0 mg/dL (<2.0) 03/04/19 21:27 Ur Leukocyte Esterase Neg (Negative) 03/04/19 21:27 Urine WBC (Auto) < 1.0 /HPF (0.0-6.0) 03/04/19 21:27 Urine RBC (Auto) 3.0 /HPF (0.0-6.0) 03/04/19 21:27 Active Medications - Current Medications Current Medications: Generic Name Dose Route Start Last Admin Trade Name Freq PRN Reason Stop Dose Admin Acetaminophen 650 mg 03/05/19 05:30 03/05/19 22:35 Tylenol PO 650 mg Q4H PRN Administration Pain MILD(1-3)/Fever >100.5/LAMBERT Dextrose 50 ml 03/05/19 06:04 D50w (25gm) Syringe IV PRN PRN Hypoglycemia Dicyclomine HCl 10 mg 03/05/19 07:00 Bentyl PO QID PRN PAIN Diphenhydramine HCl 25 mg 03/05/19 11:41 03/05/19 12:07 Benadryl PO 25 mg Q6H PRN Administration Itching Enoxaparin Sodium 40 mg 03/05/19 10:00 03/05/19 10:18 Lovenox SUB-Q 40 mg QDAY JOSE ALEJANDRO Administration Hydrocortisone Acetate 1 applic 03/05/19 22:00 03/05/19 22:34 Proctosol-Hc MS Not Given QHS JOSE ALEJANDRO Hydroxychloroquine Sulfate 200 mg 03/05/19 10:00 03/05/19 21:48 Plaquenil PO 200 mg BID JOSE ALEJANDRO Administration Sodium Chloride 1,000 mls @ 100 mls/hr 03/05/19 06:00 03/06/19 03:31 Nacl 0.45% 1000 Ml IV 100 mls/hr DIRECT JOSE ALEJANDRO Administration Insulin Human Lispro 0 unit 03/05/19 07:30 03/06/19 08:34 Humalog SUB-Q 3 unit ACHS JOSE ALEJANDRO Administration Protocol Lisinopril 5 mg 03/05/19 10:00 03/05/19 10:19 Zestril PO 5 mg QDAY JOSE ALEJANDRO Administration Miscellaneous Medication 20 mg 03/05/19 07:00 Adalimumab [Humira] SUB-Q Q14D JOSE ALEJANDRO Morphine Sulfate 2 mg 03/05/19 05:30 03/06/19 07:52 Morphine IV 2 mg Q4H PRN Administration Pain, Moderate (4-6) Ondansetron HCl 4 mg 03/05/19 05:30 Zofran IV Q8H PRN Nausea And Vomiting Prednisone 5 mg 03/05/19 10:00 03/05/19 10:19 Deltasone PO 5 mg QDAY JOSE ALEJANDRO Administration Sodium Chloride 10 ml 03/05/19 10:00 03/05/19 21:48 Sodium Chloride Flush Syringe 10 Ml IV 10 ml BID JOSE ALEJANDRO Administration Sodium Chloride 10 ml 03/05/19 05:30 Sodium Chloride Flush Syringe 10 Ml IV PRN PRN LINE FLUSH
[2019-03-06] MEDS: predniSONE 5 MG TAB PO SCH (10:29)
[2019-03-06] MEDS: ENOXAPARIN 40 MG/0.4 ML INJ SUB-Q SCH (10:29)
[2019-03-06] MEDS: HYDROXYCHLOROQUINE 200 MG TAB PO SCH (10:29)
[2019-03-06] MEDS: LISINOPRIL 5 MG TAB PO SCH (10:29)
[2019-03-06 11:54] VITALS: BP 161/64
[2019-03-06] MEDS ORDERED: SENNOSIDES/DOCUSATE SODIUM 8.6/50 MG TAB PO PRN (12:16)
[2019-03-06] MEDS ORDERED: FLEET ENEMA PR PRN (12:16)
[2019-03-06] MEDS ORDERED: POLYETHYLENE GLYCOL 3350 17 GM POWDER PO PRN (12:16)
--- NOTE | 2019-03-06 13:08 | Discharge Summary ---
Providers - Providers Date of Admission: 03/05/19 02:54 Attending physician: SARAHI LUGO MD Primary care physician: SUMAN OZUNA MD Hospitalization Condition: Critical Hospital course: 63-year-old woman who presented to the hospital with nausea, vomiting, body aches fever and dysuria x2 days. Patient denied diarrhea Past medical history; rheumatoid arthritis, hypertension, diabetes Labs revealed elevated white count which is trending down, mild anemia, hypokalemia which has now been repleted and normalized. Normal kidney function and mild hypocalcemia, UA negative CT abdomen and pelvis No official report in the system, spoke to the radiologist Nereyda Adams, she states that there is nothing acute on the CT scan, only showing fibroid uterus. Awaiting official reports. Diagnosis Acute gastroenteritis Hypertension Diabetes RA Hypokalemia Mild anemia of chronic disease Constipation Plan She has received IV fluids, pain meds and antiemetics. Diet was advanced. She received insulins, Potassium was repleted Patient complained of constipation and therefore was given laxatives. Disposition: TO HOME OR SELFCARE Time spent for discharge: 33 mins Core Measure Documentation - Palliative Care Palliative Care/ Comfort Measures: Not Applicable - Core Measures Any of the following diagnoses?: none Exam - Constitutional Vitals: Temp Pulse Resp BP Pulse Ox 98.9 F 80 16 161/64 98 03/06/19 11:46 03/06/19 11:46 03/06/19 11:46 03/06/19 11:46 03/06/19 11:46 General appearance: Present: no acute distress, well-nourished - EENT Eyes: Present: PERRL ENT: hearing intact, clear oral mucosa - Neck Neck: Present: supple, normal ROM - Respiratory Respiratory effort: normal Respiratory: bilateral: CTA - Cardiovascular Heart Sounds: Present: S1 & S2. Absent: rub, click - Extremities Extremities: pulses symmetrical, No edema Peripheral Pulses: within normal limits - Abdominal General gastrointestinal: Present: soft, non-tender, non-distended, normal bowel sounds Female genitourinary: Present: normal - Integumentary Integumentary: Present: clear, warm, dry - Musculoskeletal Musculoskeletal: gait normal, strength equal bilaterally - Psychiatric Psychiatric: appropriate mood/affect, intact judgment & insight - Neurologic Neurologic: CNII-XII intact, moves all extremities Plan Follow up with: PRIMARY CAREMD [Primary Care Provider] - 3-5 Days
== END 2019-03-06 15:30 | disposition home or self-care (01) | DRG 392 ==
LOC: ED 20:02 → 3A 03-05 02:54
PROVIDERS: ADMIT Internal Medicine; ATTEND Internal Medicine
DX: K52.9 Noninfective gastroenteritis and colitis, unspecified (principal); K57.92 Diverticulitis of intestine, part unspecified, without perforation or abscess without bleeding; M06.9 Rheumatoid arthritis, unspecified; I10 Essential (primary) hypertension; E11.9 Type 2 diabetes mellitus without complications; E87.6 Hypokalemia; E83.51 Hypocalcemia; D25.9 Leiomyoma of uterus, unspecified; S43.402A Unspecified sprain of left shoulder joint, initial encounter; F17.200 Nicotine dependence, unspecified, uncomplicated; D63.8 Anemia in other chronic diseases classified elsewhere; Z82.49 Family history of ischemic heart disease and other diseases of the circulatory system; Z83.3 Family history of diabetes mellitus; Z88.5 Allergy status to narcotic agent; Z79.899 Other long term (current) drug therapy; Y93.89 Activity, other specified; Y92.89 Other specified places as the place of occurrence of the external cause; Y99.8 Other external cause status
CPT/HCPCS: 36415; 74178; 80048; 80053; 81001; 82962; 83735; 84100; 85025; 85652; 86140; 87040; G0378; J1170; J1650; J1815; J2270; J2405; J2543; J3480; J7030; J7512; Q9967

== ENCOUNTER 2020-07-16 13:47 | Emergency (ER) | payer MEDICARE ==
[2020-07-16 14:20] VITALS: BP 163/62
--- NOTE | 2020-07-16 14:47 | Emergency Department Report ---
- General Chief complaint: Earache Stated complaint: BUMPS ON EAR AND AROUND FACE Time Seen by Provider: 07/16/20 14:20 Source: patient Mode of arrival: Ambulatory Limitations: No Limitations - History of Present Illness Initial comments: 65-year-old female with a past medical history of rheumatoid arthritis, diabetes and hypertension presents to the ER today complaint of painful bumps around her hairline and behind her right ear and behind the left ear and in her right ear. Patient states that she noticed it about 3 days ago. She states that she has been using peroxide but is not getting any better. Patient states she has had a history of abscesses in the past and is concerned that they could be developing abscesses. She denies any apparent drainage from them. She denies any insect bites or injury. She denies any new hair products or any other new contacts. She denies any fever or chills. complaint: rash -: days(s) (3) Location: head - Related Data Home Medications Medication Instructions Recorded Confirmed Last Taken Hydroxychloroquine [Plaquenil] 200 mg PO BID 10/06/13 03/05/19 01/19/19 Prednisone [predniSONE ([place]) ER 5 mg PO QDAY 10/06/13 03/05/19 01/19/19 TAB] 5 glipiZIDE [glipiZIDE XL] 10 mg PO AMHY 10/06/13 03/05/19 01/19/19 10 lisinopriL [Zestril TAB] 5 mg PO QDAY 10/06/13 03/05/19 01/19/19 5 Adalimumab [Humira] 20 mg SQ Q14D 01/20/19 03/05/19 01/03/19 20 Previous Rx's Medication Instructions Recorded Last Taken Type Acetaminophen [Non-Aspirin Extra 500 mg PO Q6HR PRN #30 tablet 01/20/19 Unknown Rx Strength] Dicyclomine [Bentyl] 10 mg PO QID PRN #20 capsule 01/20/19 Unknown Rx Bacitracin 1 applic TP TID #3.5 oint...g. 07/16/20 Unknown Rx cephALEXin [Keflex] 500 mg PO Q8HR #21 cap 07/16/20 Unknown Rx Allergies Allergy/AdvReac Type Severity Reaction Status Date / Time codeine Allergy Itching Verified 07/16/20 14:11 Abscess Boil HPI - HPI Chief Complaint: Earache Stated Complaint: BUMPS ON EAR AND AROUND FACE Time Seen by Provider: 07/16/20 14:20 Home Medications: Home Medications Medication Instructions Recorded Confirmed Last Taken Hydroxychloroquine [Plaquenil] 200 mg PO BID 10/06/13 03/05/19 01/19/19 Prednisone [predniSONE ([place]) ER 5 mg PO QDAY 10/06/13 03/05/19 01/19/19 TAB] 5 glipiZIDE [glipiZIDE XL] 10 mg PO AMHY 10/06/13 03/05/19 01/19/19 10 lisinopriL [Zestril TAB] 5 mg PO QDAY 10/06/13 03/05/19 01/19/19 5 Adalimumab [Humira] 20 mg SQ Q14D 01/20/19 03/05/19 01/03/19 20 Previous Rx's Medication Instructions Recorded Last Taken Type Acetaminophen [Non-Aspirin Extra 500 mg PO Q6HR PRN #30 tablet 01/20/19 Unknown Rx Strength] Dicyclomine [Bentyl] 10 mg PO QID PRN #20 capsule 01/20/19 Unknown Rx Bacitracin 1 applic TP TID #3.5 oint...g. 07/16/20 Unknown Rx cephALEXin [Keflex] 500 mg PO Q8HR #21 cap 07/16/20 Unknown Rx Allergies/Adverse Reactions: Allergies Allergy/AdvReac Type Severity Reaction Status Date / Time codeine Allergy Itching Verified 07/16/20 14:11 ED Review of Systems ROS: Stated complaint: BUMPS ON EAR AND AROUND FACE Other details as noted in HPI Comment: All other systems reviewed and negative Skin: rash, lesions ED Past Medical Hx - Past Medical History Hx Hypertension: Yes Hx Diabetes: Yes (pre DM) Hx Arthritis: No (RA) Hx COPD: Yes - Social History Smoking Status: Current Every Day Smoker Substance Use Type: None - Medications Home Medications: Home Medications Medication Instructions Recorded Confirmed Last Taken Type Hydroxychloroquine [Plaquenil] 200 mg PO BID 10/06/13 03/05/19 01/19/19 History Prednisone [predniSONE ([place]) ER 5 mg PO QDAY 10/06/13 03/05/19 01/19/19 History TAB] 5 glipiZIDE [glipiZIDE XL] 10 mg PO AMHY 10/06/13 03/05/19 01/19/19 History 10 lisinopriL [Zestril TAB] 5 mg PO QDAY 10/06/13 03/05/19 01/19/19 History 5 Acetaminophen [Non-Aspirin Extra 500 mg PO Q6HR PRN #30 tablet 01/20/19 03/05/19 Unknown Rx Strength] Adalimumab [Humira] 20 mg SQ Q14D 01/20/19 03/05/19 01/03/19 History 20 Dicyclomine [Bentyl] 10 mg PO QID PRN #20 capsule 01/20/19 03/05/19 Unknown Rx Bacitracin 1 applic TP TID #3.5 oint...g. 07/16/20 Unknown Rx cephALEXin [Keflex] 500 mg PO Q8HR #21 cap 07/16/20 Unknown Rx ED Physical Exam - General Limitations: No Limitations General appearance: alert, in no apparent distress - ENT ENT exam: Present: TM's normal bilaterally, normal external ear exam (No rash, bumps or swelling or exudates noted in the right ear.) - Respiratory Respiratory exam: Absent: respiratory distress - Cardiovascular Cardiovascular Exam: Present: regular rate - Neurological Exam Neurological exam: Present: alert, oriented X3, CN II-XII intact, normal gait - Psychiatric Psychiatric exam: Present: normal affect, normal mood - Skin Skin exam: Present: other (Small, tender, mildly indurated raised area in the hairline behind the right ear, at the forehead area, above the left ear; no apparent drainage. No cellulitis. No swelling.) ED Course Vital Signs 07/16/20 14:12 Temperature 98.5 F Pulse Rate 91 H Respiratory 20 Rate Blood Pressure 163/62 O2 Sat by Pulse 98 Oximetry ED Medical Decision Making - Medical Decision Making 1554: The patient is now resting comfortably, is alert and in no distress. The patient has a normal mental status and neurologically intact. The rash does not have petechiae or purpura. There are no mucous membrane lesions, no signs of abscess and no bullae. The patient appears well, and has no signs of systemic toxicity. The history, exam, and current condition do not demonstrate signs of sepsis or serious bacterial infection, [place] spotted fever, meningitis, meningococcemia, Lyme's disease, toxic shock syndrome or other significant systemic illness requiring further treatment, testing or consultation in the emergency department. The vital signs have been stable. The patient's condition is stable and appropriate for discharge. The patient or caregiver will pursue further outpatient evaluation with the primary care physician or other designated or consulting physician as indicated in the discharge instructions. Critical care attestation.: If time is entered above; I have spent that time in minutes in the direct care of this critically ill patient, excluding procedure time. ED Disposition Clinical Impression: [place] Disposition: DC-01 TO HOME OR SELFCARE Is pt being admited?: No Does the pt Need Aspirin: No Condition: Stable Instructions: Skin Abscess, [id number], Folliculitis Additional Instructions: Take the antibiotics as prescribed. Do not use peroxide anymore. Just use simple soap and water to keep the areas clean and apply the antibiotic ointment as prescribed. You can take Motrin as needed for pain. Follow-up with your primary care doctor in 1 week. Return to the ER if your symptoms worsens. Prescriptions: Bacitracin 1 applic TP TID #3.5 oint...g. cephALEXin [Keflex] 500 mg PO Q8HR #21 cap Referrals: PRIMARY CARE, [Referring] - 3-5 Days Time of Disposition: 14:47
== END 2020-07-16 15:24 | disposition home or self-care (01) ==
LOC: ED 13:47
DX: L02.02 Furuncle of face (principal); I10 Essential (primary) hypertension; E11.9 Type 2 diabetes mellitus without complications; J44.9 Chronic obstructive pulmonary disease, unspecified; F17.200 Nicotine dependence, unspecified, uncomplicated; Z79.899 Other long term (current) drug therapy; Z88.8 Allergy status to other drugs, medicaments and biological substances
CPT/HCPCS: 99281

== ENCOUNTER 2020-08-16 05:28 | Emergency (ER) | payer MEDICARE ==
[2020-08-16 05:46] VITALS: BP 150/63
[2020-08-16] MEDS ORDERED: dexAMETHasone 20 MG/5 ML VIAL IM ONE (06:00)
[2020-08-16] MEDS ORDERED: diphenhydrAMINE 50 MG/ML VIAL IM ONE (06:00)
[2020-08-16] MEDS ORDERED: FAMOTIDINE 20 MG TAB PO ONE (06:00)
--- NOTE | 2020-08-16 06:28 | Emergency Department Report ---
ED Allergic Reaction HPI - General Chief complaint: Skin Rash Stated complaint: VAGINAL AND BODY ALLERGIC REACTION Source: patient Mode of arrival: Ambulatory Limitations: No Limitations - History of Present Illness Initial Comments: Patient is a 65-year-old -Cypriot female with a history of hypertension, [id number] diabetes, chronic pain due to rheumatoid arthritis and COPD who presents to the ED with complaint of acute onset persistent diffuse itchy erythematous maculopapular urticarial rashes persistently for the last 1 week after taking Bactrim DS for UTI. Patient states that the itching and the rash started gradually but in the last 3 days the itching has worsened such that she has not been able to sleep because of worsening itching and diffuse itchy rashes. Patient states that she did not take any medication for itching prior to arrival in the ED. Patient denies swollen lips or tongue, dysphagia, dysphonia, swollen throat, swollen face, wheezing, shortness of breath, chest pain, chest tightness, palpitations, syncope, seizures, nausea and vomiting or diarrhea and abdominal pain, fever and chills. MD Complaint: allergic reaction, hives, other (diffuse itching) -: Gradual, week(s) (1) Exposure: medication (Bactrim DS) Severity: moderate Treatment Prior to Arrival: none Previous Allergy History: none - Related Data Home Medications Medication Instructions Recorded Confirmed Last Taken Hydroxychloroquine [Plaquenil] 200 mg PO BID 10/06/13 03/05/19 01/19/19 Prednisone [predniSONE ([place]) ER 5 mg PO QDAY 10/06/13 03/05/19 01/19/19 TAB] 5 glipiZIDE [glipiZIDE XL] 10 mg PO AMHY 10/06/13 03/05/19 01/19/19 10 lisinopriL [Zestril TAB] 5 mg PO QDAY 10/06/13 03/05/19 01/19/19 5 Adalimumab [Humira] 20 mg SQ Q14D 01/20/19 03/05/19 01/03/19 20 Previous Rx's Medication Instructions Recorded Last Taken Type Acetaminophen [Non-Aspirin Extra 500 mg PO Q6HR PRN #30 tablet 01/20/19 Unknown Rx Strength] Dicyclomine [Bentyl] 10 mg PO QID PRN #20 capsule 01/20/19 Unknown Rx Bacitracin 1 applic TP TID #3.5 oint...g. 07/16/20 Unknown Rx cephALEXin [Keflex] 500 mg PO Q8HR #21 cap 07/16/20 Unknown Rx Famotidine [Pepcid] 20 mg PO Q12H #30 tablet 08/16/20 Unknown Rx diphenhydrAMINE [Benadryl CAP] 25 mg PO Q6HR PRN #40 capsule 08/16/20 Unknown Rx predniSONE [Deltasone] 40 mg PO QDAY #10 tab 08/16/20 Unknown Rx Allergies Allergy/AdvReac Type Severity Reaction Status Date / Time codeine Allergy Itching Verified 07/16/20 14:11 ED Review of Systems ROS: Stated complaint: VAGINAL AND BODY ALLERGIC REACTION Other details as noted in HPI Constitutional: denies: chills, fever Eyes: denies: eye pain, eye discharge, vision change ENT: denies: ear pain, throat pain Respiratory: denies: cough, shortness of breath, wheezing Cardiovascular: denies: chest pain, palpitations Endocrine: no symptoms reported Gastrointestinal: denies: abdominal pain, nausea, diarrhea Genitourinary: denies: urgency, dysuria, discharge Musculoskeletal: denies: back pain, joint swelling, arthralgia Skin: rash (Diffuse itchy erythematous urticarial rashes), change in color, pruritus. denies: lesions Neurological: denies: headache, weakness, paresthesias Psychiatric: denies: anxiety, depression Hematological/Lymphatic: denies: easy bleeding, easy bruising ED Past Medical Hx - Past Medical History Hx Hypertension: Yes Hx Diabetes: Yes (pre DM) Hx Arthritis: No (RA) Hx COPD: Yes - Social History Smoking Status: Current Every Day Smoker - Medications Home Medications: Home Medications Medication Instructions Recorded Confirmed Last Taken Type Hydroxychloroquine [Plaquenil] 200 mg PO BID 10/06/13 03/05/19 01/19/19 History Prednisone [predniSONE ([place]) ER 5 mg PO QDAY 10/06/13 03/05/19 01/19/19 History TAB] 5 glipiZIDE [glipiZIDE XL] 10 mg PO AMHY 10/06/13 03/05/19 01/19/19 History 10 lisinopriL [Zestril TAB] 5 mg PO QDAY 10/06/13 03/05/19 01/19/19 History 5 Acetaminophen [Non-Aspirin Extra 500 mg PO Q6HR PRN #30 tablet 01/20/19 03/05/19 Unknown Rx Strength] Adalimumab [Humira] 20 mg SQ Q14D 01/20/19 03/05/19 01/03/19 History 20 Dicyclomine [Bentyl] 10 mg PO QID PRN #20 capsule 01/20/19 03/05/19 Unknown Rx Bacitracin 1 applic TP TID #3.5 oint...g. 07/16/20 Unknown Rx cephALEXin [Keflex] 500 mg PO Q8HR #21 cap 07/16/20 Unknown Rx Famotidine [Pepcid] 20 mg PO Q12H #30 tablet 08/16/20 Unknown Rx diphenhydrAMINE [Benadryl CAP] 25 mg PO Q6HR PRN #40 capsule 08/16/20 Unknown Rx predniSONE [Deltasone] 40 mg PO QDAY #10 tab 08/16/20 Unknown Rx ED Physical Exam - General Limitations: No Limitations General appearance: alert, in no apparent distress - Head Head exam: Present: atraumatic, normocephalic, normal inspection - Eye Eye exam: Present: normal appearance, PERRL, EOMI Pupils: Present: normal accommodation - ENT ENT exam: Present: normal exam, normal orophraynx, mucous membranes moist, TM's normal bilaterally, normal external ear exam - Neck Neck exam: Present: normal inspection, full ROM - Respiratory Respiratory exam: Present: normal lung sounds bilaterally. Absent: respiratory distress, wheezes, rales, rhonchi, chest wall tenderness, accessory muscle use, decreased breath sounds, prolonged expiratory - Cardiovascular Cardiovascular Exam: Present: regular rate, normal rhythm, normal heart sounds. Absent: systolic murmur, diastolic murmur, rubs, gallop - GI/Abdominal GI/Abdominal exam: Present: soft, normal bowel sounds. Absent: tenderness, guarding, rebound, rigid, hyperactive bowel sounds, hypoactive bowel sounds - Extremities Exam Extremities exam: Present: normal inspection, full ROM, normal capillary refill - Back Exam Back exam: Present: normal inspection, full ROM. Absent: tenderness, CVA tenderness (R), CVA tenderness (L), muscle spasm, paraspinal tenderness - Neurological Exam Neurological exam: Present: alert, oriented X3, CN II-XII intact, normal gait, reflexes normal - Psychiatric Psychiatric exam: Present: normal affect, normal mood - Skin Skin exam: Present: warm, dry, intact, rash (Diffuse itchy erythematous maculopapular urticarial rashes), urticaria ED Course Vital Signs 08/16/20 05:41 Temperature 98.3 F Pulse Rate 98 H Respiratory 16 Rate Blood Pressure 150/63 O2 Sat by Pulse 97 Oximetry ED Medical Decision Making - Medical Decision Making This is a 65-year-old -Cypriot female with a history of hypertension, [id number] diabetes, chronic pain due to rheumatoid arthritis and COPD who presents to the ED with complaint of acute onset persistent diffuse itchy erythematous maculopapular urticarial rashes persistently for the last 1 week after taking Bactrim DS for UTI. Patient states that the itching and the rash started gradually but in the last 3 days the itching has worsened such that she has not been able to sleep because of worsening itching and diffuse itchy rashes. Patient states that she did not take any medication for itching prior to arrival in the ED. in the ED, patient is alert and oriented x3 and is not in distress. Patient was treated in the ED for acute allergic reaction to sulfa in Bactrim DS tablets based on history and physical exam findings. Patient was treated in the ED with Decadron, Benadryl as well as Pepcid. On reevaluation, the rash is improved significantly and the itching resolved. Patient was discharged home on 5-day course of oral prednisone, Benadryl and Pepcid. Patient was advised to return to the ED immediately if symptoms get worse or otherwise follow-up with her primary care physician in 3 to 5 days for reevaluation. - Differential Diagnosis Acute allergic reaction; acute urticaria; irritant dermatitis; drug allergy Critical care attestation.: If time is entered above; I have spent that time in minutes in the direct care of this critically ill patient, excluding procedure time. ED Disposition Clinical Impression: Acute urticaria, Itching with irritation Acute allergic reaction Qualifiers: Encounter type: initial encounter Qualified Code(s): T78.40XA - Allergy, unspecified, initial encounter Disposition: - TO HOME OR SELFCARE Is pt being admited?: No Does the pt Need Aspirin: No Condition: Stable Instructions: Hives, Allergies, Adult, [id number], Hives, Uezl-yi-Ejws, Rash, Adult, [id number], Drug Allergy, [id number] Additional Instructions: Take medication with food, drink plenty of fluids and follow-up with your primary care physician in 5 to 7 days for reevaluation. Return to the ED immediately if symptoms get worse. Prescriptions: diphenhydrAMINE [Benadryl CAP] 25 mg PO Q6HR PRN #40 capsule PRN Reason: Itching and allergies predniSONE [Deltasone] 40 mg PO QDAY #10 tab Famotidine [Pepcid] 20 mg PO Q12H #30 tablet Referrals: [facility] [Provider Group] - 3-5 Days Time of Disposition: 06:28 Print Language: BULGARIAN
== END 2020-08-16 06:43 | disposition home or self-care (01) ==
LOC: ED 05:28
DX: T78.40XA Allergy, unspecified, initial encounter (principal); L50.9 Urticaria, unspecified; L29.9 Pruritus, unspecified; I10 Essential (primary) hypertension; E11.9 Type 2 diabetes mellitus without complications; J44.9 Chronic obstructive pulmonary disease, unspecified; F17.200 Nicotine dependence, unspecified, uncomplicated; Z79.899 Other long term (current) drug therapy; Z88.8 Allergy status to other drugs, medicaments and biological substances; X58.XXXA Exposure to other specified factors, initial encounter
CPT/HCPCS: 96372; 99282; J1100; J1200

== ENCOUNTER 2021-09-30 12:14 | Outpatient (CLI) | payer MEDICARE ==
[2021-09-30 13:05] LABS: Basophils # (Auto) 0.2 K/mm3 (0.0-0.1); Basophils % (Auto) 1.4 % (0.0-1.8); Eosinophils # (Auto) 0.3 K/mm3 (0.0-0.4); Eosinophils % (Auto) 2.9 % (0.0-4.3); Hematocrit 36.9 % (30.3-42.9); Hemoglobin 12.1 gm/dl (10.1-14.3); Lymphocytes # (Auto) 3.2 K/mm3 (1.2-5.4); Lymphocytes % (Auto) 29.8 % (13.4-35.0); Mean Corpuscular HGB Conc 33 % (30-34); Mean Corpuscular Volume 91 fl (79-97); Monocytes # (Auto) 1.2 K/mm3 (0.0-0.8); Monocytes % (Auto) 11.5 % (0.0-7.3); Platelet Count 228 K/mm3 (140-440); Red Blood Count 4.08 M/mm3 (3.65-5.03); Red Cell Distribution Width 13.7 % (13.2-15.2)
[2021-09-30 13:20] LABS: Alanine Aminotransferase 13 units/L (7-56); Albumin 4.5 g/dL (3.9-5); BUN/Creatinine Ratio 14; Blood Urea Nitrogen 10 mg/dL (7-17); Calcium 9.4 mg/dL (8.4-10.2); Chol/HDL Ratio 1.82 %; HDL Cholesterol 94 mg/dL (40-59); Hemolysis Index 2; LDL Cholesterol,Direct 70 mg/dL (50-130)
== END 2021-09-30 12:15 | disposition home or self-care (01) ==
LOC: LAB 12:14
PROVIDERS: ATTEND Internal Medicine
DX: Z00.00 Encounter for general adult medical examination without abnormal findings (principal); E11.9 Type 2 diabetes mellitus without complications; E55.9 Vitamin D deficiency, unspecified; I10 Essential (primary) hypertension; J44.9 Chronic obstructive pulmonary disease, unspecified; R53.83 Other fatigue
CPT/HCPCS: 36415; 80053; 80061; 84443; 85025

== ENCOUNTER 2021-12-05 10:20 | Outpatient (CLI) | payer MEDICARE | END 2021-12-05 10:21 | disposition home or self-care (01) | LOC: LAB 10:20 | PROVIDERS: ATTEND Internal Medicine | DX: R94.6 Abnormal results of thyroid function studies (principal) | CPT/HCPCS: 36415; 84436; 84443; 84479; 84480 ==